=== PATIENT | female | born 1985 | race Two or more races ===

== ENCOUNTER 2024-11-30 18:18 | Emergency (ER) | payer MEDICAID, SELFPAY ==
[2024-11-30 18:19] VITALS: BMI 27.6
[2024-11-30 18:55] VITALS: BP 127/67; PULSE 117; RESP 16; TEMP 36.9; O2SAT 96
[2024-11-30 19:25] LABS: Basophils % (Auto) 1 % (0-2.5); Eosinophils # (Auto) 0.1 Thou/mm3 (0.0-0.5); Eosinophils % (Auto) 2 % (0-10); Hematocrit 23.7 % (36.0-46.0); Immature Granulocytes % (Auto) 0 % (0-0); Immature Granulocytes Auto 0.01 Thou/mm3 (0.00-0.00); Lymphocytes # (Auto) 1.4 Thou/mm3 (1.0-4.8); Lymphocytes % (Auto) 31 % (10-50); Mean Corpuscular HGB Conc 29.5 g/dl (31.0-37.0); Mean Corpuscular Hemoglobin 21.5 pg (25.0-35.0); Mean Corpuscular Volume 73 fL (80-100); Monocytes # (Auto) 0.4 Thou/mm3 (0.0-0.8); Monocytes % (Auto) 9 % (0-12); Neutrophils # (Auto) 2.6 Thou/mm3 (1.8-7.7); Neutrophils % (Auto) 57 % (37-80); Nucleated Red Blood Cell % 0 /100 WBC (0); Platelet Count 198 Thou/mm3 (140-440); RDW Standard Deviation 50.4 fL (36.4-46.3); Red Blood Count 3.26 Miln/mm3 (4.00-5.20); White Blood Count 4.6 Thou/mm3 (3.6-11.0)
[2024-11-30 19:42] LABS: Alanine Aminotransferase 23 U/L (10-49); Albumin/Globulin Ratio 1.6 (1.2-2.2); Alkaline Phosphatase 63 U/L (46-116); Anion Gap 6 (7-16); Aspartate Amino Transferase 31 U/L (0-34); BUN/Creatinine Ratio 23 Ratio (12-20); Bilirubin,Total 0.2 mg/dL (0.3-1.2); Blood Urea Nitrogen 18 mg/dL (9-23); Calcium 9.1 mg/dL (8.3-10.6); Calcium (Corrected) 9.1 mg/dL (8.5-10.1); Carbon Dioxide 23.6 mMol/L (20.0-31.0); Chloride 114 mMol/L (98-107); Creatinine (Component) 0.8 mg/dL (0.6-1.3); Estimated Creatinine Clearance 87.3 mL/min (>60); Globulin 2.5 gm/dL (2.3-3.5); Glucose 127 mg/dL (74-106); Osmolality,Calculated 290 (275-295); Potassium 4.2 mMol/L (3.4-5.1); Sodium 144 mMol/L (136-145); Total Protein 6.5 gm/dL (5.7-8.2); eGFR > 60 See Note
--- NOTE | 2024-11-30 19:42 | EDNOTE_ITS ---
ED OB Contraction Preg RMI/HPI General Chief complaint: Vaginal Bleeding Stated complaint: VAG BLEED X1WK HX OF BLOOD TRANSFUSION Time Seen by Provider: 11/30/24 19:02 Arrival date/time: 11/30/24 18:18 39F with history of anemia 2/2 to heavy vaginal bleeding (transfusion at [facility] recently) presents to ED with weakness and vaginal bleeding. Patient has a known mass in uterus that OBGYN is planning to do surgery soon. Patient denies chance of . Patient is here because OB told her to come to check her Hgb. But she states this is not the worst it's ever been. Limitations: no limitations Related Data Previous Rx's ?Medication ?Instructions ?Recorded cephalexin 500 mg capsule (Keflex) 500 mg PO TID #30 c aps 02/08/20 cephalexin 500 mg capsule (Keflex) 500 mg PO TID #30 c aps 02/08/20 ibuprofen 800 mg tablet 800 mg PO Q6H PRN pain #30 t abs 02/08/20 ibuprofen 800 mg tablet 800 mg PO Q6H PRN pain #30 t abs 02/08/20 Allergies Allergy/AdvReac Type Severity Reaction Status Date / Time No Known Allergies Allergy Verified 11/30/24 18:20 Review of Systems Review of Systems Systems Reviewed: All systems reviewed, normal except as documented Constitutional Constitutional: Reports system reviewed and no additional complaints, except as documented, Denies fever(s), Denies headache(s) and Reports weakness ENT Ears, Nose, Mouth, and Throat: Denies disequilibrium and Denies headache(s) Cardiovascular Cardiovascular: Reports system reviewed and no additional complaints, except as documented, Denies chest pain and Denies dyspnea Respiratory Respiratory: Reports system reviewed and no additional complaints, except as documented, Denies cough and Denies dyspnea Gastrointestinal Gastrointestinal: Reports system reviewed and no additional complaints, except as documented, Denies abdominal pain, Denies nausea and Denies vomiting Genitourinary Genitourinary: Reports as per HPI and Reports abnormal vaginal bleeding Neurologic Neurologic: Reports system reviewed and no additional complaints, except as documented, Reports as per HPI, Denies confusion, Denies disequilibrium, Denies headache(s) and Reports weakness Psychiatric Psychiatric: Denies confusion Past Medical History Social History SMOKING STATUS: Current every day smoker ED Exam General Limitations: Present no limitations General appearance: Present alert and in no apparent distress Head Head exam: Present atraumatic Eye Eye exam: Present normal appearance, PERRL and EOMI ENT ENT exam: Present normal exam, normal oropharynx and mucous membranes moist Neck Neck exam: Present normal inspection, full ROM and trachea midline Chest Chest inspection: Present normal inspection and symmetric chest wall rise Respiratory Respiratory exam: Present normal lung sounds bilaterally Cardiovascular Cardiovascular exam: Present regular rate, normal rhythm and normal heart sounds Abdominal Exam Abdominal exam: Present soft and normal bowel sounds Extremities Exam Extremities exam: Present normal inspection and full ROM Back Exam Back exam: Present normal inspection and full ROM Neurological Exam Neurological exam: Present alert, oriented X3 and CN II-XII intact Psychiatric Psychiatric exam: Present normal affect and normal mood Skin Skin exam: Present warm, dry, intact and normal color Course Quality Measures none Orders Category Date Time Status Insert IV NOW Care 11/30/24 19:50 Completed CBC Stat Lab 11/30/24 19:14 Completed CMP [Comprehensive Metabolic Panel] Stat Lab 11/30/24 19:14 Completed Hemoglobin and Hematocrit Stat Lab 12/01/24 06:51 Completed Type and Screen Stat Lab 11/30/24 19:14 Completed prbc [Red Blood Cells] Stat Lab 11/30/24 19:14 Completed Vital Signs Vital signs: Vital Signs Temperature 98.5 F 11/30/24 18:55 Pulse Rate 117 H 11/30/24 18:55 Respiratory Rate 16 11/30/24 18:55 Blood Pressure 127/67 11/30/24 18:55 Pulse Oximetry (%) 96 11/30/24 18:55 Oxygen Delivery Method Room Air 11/30/24 18:55 O2 at 96% on RA and WNLs Vaginal Bleeding MDM Narrative MDM Narrative: 39F with history of anemia 2/2 to heavy vaginal bleeding (transfusion at [facility] recently) presents to ED with weakness and vaginal bleeding. Patient has a known mass in uterus that OBGYN is planning to do surgery soon. Patient denies chance of . Patient is here because OB told her to come to check her Hgb. Patient does not recall how many pads per hour. She's been wearing diapers. But she states this is not the worst it's ever been. Physical exam reveals no pelvic tenderness. Patient is afebrile, calm, and alert. Hgb 7.0. Spoke to Dr. Pepe, patient's OB, who states to repeat H/H after transfusion of 2 units. Care signed out to colleague. New hemoglobin was 9.[address] Pepe told colleague patient can be DC'd. When eloped prior to receiving DC papers. Patient data External records reviewed:: [facility] previous records Clinical information provided by:: patient Social determinants that could affect healthcare access:: none Patient has the following chronic illnesses:: anemia How is presenting disease/condition affected by chronic disease/condition?: caused by Evaluation data The following diagnostics were reviewed and interpreted by me:: lab results Lab and/or radiology exams considered but not ordered:: ordered Interpretation Summary: above Medications / Prescriptions Medications or Prescriptions considered but not ordered:: not rodered Medication administrations:: n/a Consultations Consultation(s) initiated? (list below): Yes Diagnosis Vaginal Bleeding Differential Diagnosis: missed , threatened , dysfunctional uterine bleeding, menometrorrhagia, incomplete , ectopic without intrauterine and vaginal bleeding Most likely diagnosis given after review of the tests above:: vaginal bleeding and anemia Admission Indicated Admission indicated?: not indicated Admission Request Was there a request for admission?: No Disposition Plan Disposition Plan: other (specify) (eloped) Discharge Plan Plan Patient Disposition: Elopement Prescriptions/Referrals Prescriptions/Med Rec: No Action cephalexin [Keflex] 500 mg capsule 500 mg PO TID Qty: 30 0RF ibuprofen 800 mg tablet 800 mg PO Q6H PRN (Reason: pain) Qty: 30 0RF cephalexin [Keflex] 500 mg capsule 500 mg PO TID Qty: 30 0RF ibuprofen 800 mg tablet 800 mg PO Q6H PRN (Reason: pain) Qty: 30 0RF Referrals: Tremayne Pepe MD [Primary Care Provider] - In 1 week Problem List Clinical Impression: Vaginal bleeding, Anemia Patient/Caregiver Discharge Instructions Print Language: Hungarian
[2024-12-01] VITALS (8 sets, daily range): BP systolic 107–115; BP diastolic 71–83; PULSE 83–107; RESP 16–19; TEMP 36.6–36.9; O2SAT 100
[2024-12-01 07:17] LABS: Hematocrit 29.4 % (36.0-46.0); Hemoglobin 9.2 g/dL (12.0-16.0)
--- NOTE | 2024-12-01 07:39 | PC.NURSE ---
PT CAME OUT OF ER RM 8 STATING SHE WANTS TO GO SMOKE A CIGARETTE AND I INFORMED HER WE DO NOT ALLOW PT'S TO EXIT THE ER WITH IVS IN THEIR ARMS BUT I WOULD LET HER NURSE KNOW. I GOT CHARGE NURSE RAMON TO REMOVE THE IV FROM THE PT ARM AND SHE EXITED THE ER SHORTLY AFTER.
--- NOTE | 2024-12-01 17:59 | EDNOTE_ITS ---
ED OB Contraction Preg RMI/HPI General Chief complaint: Vaginal Bleeding Stated complaint: VAG BLEED X1WK HX OF BLOOD TRANSFUSION Time Seen by Provider: 11/30/24 19:02 Arrival date/time: 11/30/24 18:18 39-year-old female with no known medical history presents to the emergency room with a chief complaint of vaginal bleeding x 1 week. Patient has a history of blood transfusions. Limitations: no limitations Related Data Previous Rx's ?Medication ?Instructions ?Recorded cephalexin 500 mg capsule (Keflex) 500 mg PO TID #30 c aps 02/08/20 cephalexin 500 mg capsule (Keflex) 500 mg PO TID #30 c aps 02/08/20 ibuprofen 800 mg tablet 800 mg PO Q6H PRN pain #30 t abs 02/08/20 ibuprofen 800 mg tablet 800 mg PO Q6H PRN pain #30 t abs 02/08/20 Allergies Allergy/AdvReac Type Severity Reaction Status Date / Time No Known Allergies Allergy Verified 11/30/24 18:20 Review of Systems Review of Systems Systems Reviewed: All systems reviewed, normal except as documented Constitutional Constitutional: Reports system reviewed and no additional complaints, except as documented, Denies fatigue, Denies fever(s), Denies headache(s) and Denies weakness Eyes Eyes: Reports system reviewed and no additional complaints, except as documented, Denies blurry vision and Denies change in vision ENT Ears, Nose, Mouth, and Throat: Reports system reviewed and no additional complaints, except as documented, Denies otalgia, Denies headache(s), Denies nasal congestion, Denies throat swelling and Denies vertigo Cardiovascular Cardiovascular: Reports system reviewed and no additional complaints, except as documented, Denies chest pain, Denies dyspnea and Denies dyspnea on exertion Respiratory Respiratory: Reports system reviewed and no additional complaints, except as documented, Denies chest congestion, Denies cough, Denies dyspnea, Denies dyspnea on exertion and Denies wheezing Gastrointestinal Gastrointestinal: Reports system reviewed and no additional complaints, except as documented, Denies abdominal pain, Denies cramping, Denies nausea and Denies vomiting Genitourinary Genitourinary: Reports system reviewed and no additional complaints, except as documented Musculoskeletal Musculoskeletal: Reports system reviewed and no additional complaints, except as documented and Denies back pain Integumentary/Breasts Skin/Breast: Reports system reviewed and no additional complaints, except as documented and Denies wounds Neurologic Neurologic: Reports system reviewed and no additional complaints, except as documented, Denies confusion, Denies headache(s), Denies lack of coordination, Denies vertigo and Denies weakness Psychiatric Psychiatric: Reports system reviewed and no additional complaints, except as documented, Denies anxiety, Denies confusion, Denies depression, Denies paranoia, Denies suicidal ideation and Denies tactile hallucinations Endocrine Endocrine: Reports system reviewed and no additional complaints, except as documented and Denies fatigue Hematologic/Lymphatic Hematologic/Lymphatic: Reports system reviewed and no additional complaints, exc ept as documented and Denies lymphadenopathy Allergic/Immunologic Allergic/Immunologic: Reports system reviewed and no additional complaints, except as documented, Denies throat swelling, Denies urticaria and Denies wheezing Past Medical History Past Medical History CARDIAC: Negative Congestive Heart Failure RESPIRATORY: Negative Chronic Obstructive Pulmonary Disease (COPD) GENITOURINARY: Negative Renal Disease ENDOCRINE: Negative Diabetes Mellitus Type 1 or Diabetes Mellitus Type 2 Social History SMOKING STATUS: Current every day smoker ED Exam General Limitations: Present no limitations General appearance: Present alert and in no apparent distress Head Head exam: Present atraumatic Eye Eye exam: Present normal appearance, PERRL and EOMI ENT ENT exam: Present normal exam, normal oropharynx and mucous membranes moist Neck Neck exam: Present normal inspection, full ROM and trachea midline Chest Chest inspection: Present normal inspection and symmetric chest wall rise Respiratory Respiratory exam: Present normal lung sounds bilaterally Cardiovascular Cardiovascular exam: Present regular rate, normal rhythm and normal heart sounds Abdominal Exam Abdominal exam: Present soft and normal bowel sounds Extremities Exam Extremities exam: Present normal inspection and full ROM Back Exam Back exam: Present normal inspection and full ROM Neurological Exam Neurological exam: Present alert, oriented X3 and CN II-XII intact Psychiatric Psychiatric exam: Present normal affect and normal mood Skin Skin exam: Present warm, dry, intact and normal color Course Quality Measures none Orders Category Date Time Status Insert IV NOW Care 11/30/24 19:50 Completed CBC Stat Lab 11/30/24 19:14 Completed CMP [Comprehensive Metabolic Panel] Stat Lab 11/30/24 19:14 Completed Hemoglobin and Hematocrit Stat Lab 12/01/24 06:51 Completed Type and Screen Stat Lab 11/30/24 19:14 Completed prbc [Red Blood Cells] Stat Lab 11/30/24 19:14 Completed Vital Signs Vital signs: Vital Signs Temperature 98.5 F 11/30/24 18:55 Pulse Rate 117 H 11/30/24 18:55 Respiratory Rate 16 11/30/24 18:55 Blood Pressure 127/67 11/30/24 18:55 Pulse Oximetry (%) 96 11/30/24 18:55 Oxygen Delivery Method Room Air 11/30/24 18:55 Vaginal Bleeding MDM Narrative MDM Narrative: 39-year-old female with no known medical history presents to the emergency room with a chief complaint of vaginal bleeding x 1 week. Patient has a history of blood transfusions. Patient is hemodynamically stable and in no apparent distress This patient was passed on by my colleague. I did not conduct a physical examination. My colleague explained to me to call Dr. Felton the METEOROLOGIST LIA[facility] when the patients H&H is back. I spoke to Dr. Pepe the METEOROLOGIST LIAISON on-call and gave her the patient's hemoglobin and hematocrit levels after a blood transfusion was given to the patient. Patient's new hemoglobin was 9.2 and 29.4 hematocrit patient vital signs are within normal limits. Dr. Pepe states the patient is ready for discharge. When I went to evaluate the patient and let her know what [facility] recommended the nurse told me that the patient had eloped. Patient eloped prior to final disposition Patient data External records reviewed:: [facility] previous records Clinical information provided by:: patient Social determinants that could affect healthcare access:: none Patient has the following chronic illnesses:: No chronic illness How is presenting disease/condition affected by chronic disease/condition?: no chronic disease Evaluation data The following diagnostics were reviewed and interpreted by me:: lab results and radiology exam(s) Lab and/or radiology exams considered but not ordered:: Labs and radiology exams considered and ordered Interpretation Summary: N/A Medications / Prescriptions Medications or Prescriptions considered but not ordered:: No medication given Medication administrations:: No medication given Consultations Consultation(s) initiated? (list below): Yes Consultation #1 (Physician, Specialty, Details): Dr. Pepe Time: 08:00 Diagnosis Vaginal Bleeding Differential Diagnosis: dysfunctional uterine bleeding and vaginal bleeding Most likely diagnosis given after review of the tests above:: Vaginal bleeding Admission Indicated Admission indicated?: not indicated Admission Request Was there a request for admission?: No Disposition Plan Disposition Plan: Discharge Discharge Attestation Discharge Attestation: The patient and all family members were given an opportunity to ask questions and understood the discharge instructions. Discharge instructions specifically effects, indications for sooner follow up or return to the emergency department, and the expected course of current diagnosis. Patient condition: Stable Discharge Plan Plan Patient Disposition: Elopement Prescriptions/Referrals Prescriptions/Med Rec: No Action cephalexin [Keflex] 500 mg capsule 500 mg PO TID Qty: 30 0RF ibuprofen 800 mg tablet 800 mg PO Q6H PRN (Reason: pain) Qty: 30 0RF cephalexin [Keflex] 500 mg capsule 500 mg PO TID Qty: 30 0RF ibuprofen 800 mg tablet 800 mg PO Q6H PRN (Reason: pain) Qty: 30 0RF Referrals: Tremayne Pepe MD [Primary Care Provider] - In 1 week Problem List Clinical Impression: Vaginal bleeding Patient/Caregiver Discharge Instructions Print Language: Luxembourgish
== END 2024-12-01 07:46 | disposition left against medical advice (07) ==
LOC: SERX 19:32
PROVIDERS: Physician Assistant; Emergency Provider Emergency Medicine; PCP Student in an Organized Health Care Education/Training Program
DX: N93.9 Abnormal uterine and vaginal bleeding, unspecified (principal); D50.0 Iron deficiency anemia secondary to blood loss (chronic); N85.8 Other specified noninflammatory disorders of uterus; F17.200 Nicotine dependence, unspecified, uncomplicated
CPT/HCPCS: 36415; 36430; 80053; 85014; 85018; 85025; 86850; 86900; 86901; 86923; 99285; P9016